=== PATIENT | female | born 1965 | race Caucasian/White ===

== ENCOUNTER → 2016-07-27 | Outpatient (CLI) | payer BC ==
[~2016-07-27] MED LIST: HYDR-696 PO; [UNRECOGNIZED DRUG - CODE] PO; [UNRECOGNIZED DRUG - CODE] PO
--- NOTE | 2016-07-27 16:50 | DI ---
Indication: ITS.REASON: THORACIC SPINAL STENOSIS M48.04 PROCEDURE: MRI THORACIC SPINE W/O CONTRAS: Encounter: Initial Comparison: Thoracic spine MRI dated October 25, 2012 Technique: Multiplanar, multisequence, thoracic spine protocol MR imaging without contrast of the spine was acquired. FINDINGS: Alignment of the thoracic spine is unchanged. Bone marrow edema at the T12-L1 level has improved as has the prior abnormal T2 hyperintense signal within the T12-L1 disk. No acute fracture or acute bone marrow edema appreciated. The thoracic spinal cord signal intensity is normal. Paraspinal soft tissues show no acute findings. Minimal disk bulging at T3-T4 without true central canal stenosis. Minimal disk bulge at T7-T8 on the right without central canal narrowing. Tiny T8-T9 central bulge without stenosis. Mild right central bulging at T9-T10 effacing the right aspect of the thecal sac without true central canal narrowing. Central disk protrusion at T11-T12 without central canal stenosis. Findings are very similar to the comparison exam. No evidence of cord compression. No neural foraminal stenosis. Impression: Interval improvement in vertebral body edema at the T12-L1 level, otherwise stable appearance of the thoracic spine. .
== END ==
LOC: IMA 15:18
PROVIDERS: ATTEND Neurological Surgery
DX: M48.04 Spinal stenosis, thoracic region (principal); R60.0 Localized edema